=== PATIENT | female | born 1995 | race American Indian/Alaskan Native ===

== ENCOUNTER 2017-09-22 15:23 | Emergency (ER) | payer OTHER ==
--- NOTE | 2017-09-22 17:45 | Emergency Department Report ---
ED Back Pain/Injury HPI - General Chief Complaint: Back Pain/Injury Stated Complaint: BACK PAIN Time Seen by Provider: 09/22/17 17:35 Source: patient Limitations: No Limitations - History of Present Illness Initial Comments: Patient is 21 years old female with no significant past medical history. Patient presented is to day history of lower back pain that radiated down to her left leg. 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 She denied any bowel or bladder incontinence. No weakness numbness or tingling sensation. No fever. MD Complaint: back pain -: Last night Place: work Severity scale (0 -10): 5 Quality: sharp Improves With: none - Related Data Allergies Allergy/AdvReac Type Severity Reaction Status Date / Time No Known Allergies Allergy Unverified 02/24/14 08:38 ED Review of Systems ROS: Stated complaint: BACK PAIN Other details as noted in HPI Comment: All other systems reviewed and negative Constitutional: denies: chills, fever Cardiovascular: denies: chest pain, palpitations, dyspnea on exertion Musculoskeletal: back pain ED Past Medical Hx - Past Medical History Previous Medical History?: No - Surgical History Past Surgical History?: Yes Additional Surgical History: Right ovary and fallopian tube removed - Social History Smoking Status: Never Smoker Substance Use Type: Alcohol ED Physical Exam - General Limitations: No Limitations General appearance: alert, in no apparent distress - Head Head exam: Present: atraumatic, normocephalic, normal inspection - ENT ENT exam: Present: normal exam - Neck Neck exam: Present: normal inspection - Respiratory Respiratory exam: Present: normal lung sounds bilaterally. Absent: respiratory distress, wheezes, rales, rhonchi, chest wall tenderness, accessory muscle use, decreased breath sounds, prolonged expiratory - Cardiovascular Cardiovascular Exam: Present: regular rate, normal rhythm, normal heart sounds - GI/Abdominal GI/Abdominal exam: Present: soft, normal bowel sounds. Absent: distended, tenderness, guarding, rebound, rigid, organomegaly, mass, bruit, pulsatile mass , hernia - Back Exam Back exam: Present: normal inspection, full ROM, muscle spasm. Absent: tenderness, CVA tenderness (R), CVA tenderness (L), paraspinal tenderness, vertebral tenderness, rash noted - Neurological Exam Neurological exam: Present: alert, oriented X3, CN II-XII intact, normal gait - Skin Skin exam: Present: warm, intact, normal color ED Course Vital Signs 09/22/17 15:35 Temperature 98.6 F Pulse Rate 103 H Respiratory 20 Rate Blood Pressure 145/91 O2 Sat by Pulse 98 Oximetry Critical care attestation.: If time is entered above; I have spent that time in minutes in the direct care of this critically ill patient, excluding procedure time. ED Disposition Clinical Impression: Back pain Disposition: DC-01 TO HOME OR SELFCARE Is pt being admited?: No Condition: Stable Instructions: Lumbar Radiculopathy (ED), Sciatica (ED) Referrals: PRIMARY CARE, [Primary Care Provider] - 3-5 Days
[2017-09-22 18:08] VITALS: BP 145/87
== END 2017-09-22 18:05 | disposition home or self-care (01) ==
LOC: ED 15:23
DX: M54.5 Low back pain (principal)
CPT/HCPCS: 99282